=== PATIENT | male | born 1940 | race Caucasian/White ===

== ENCOUNTER 2019-12-22 09:25 | Inpatient (IN) | payer MEDICAID, OTHER ==
[~2019-12-22] VITALS: Ht 177.8 cm; Wt 80.3 kg
[2019-12-22] MEDS ORDERED: MORPHINE SULFATE 4 MG/ML CPJ (NOT FOR IM USE) IV STA (09:41)
[2019-12-22] MEDS ORDERED: ONDANSETRON HCL 4MG/2ML INJ IV STA (09:41)
[2019-12-22] MEDS ORDERED: SODIUM CHLORIDE 0.9% 1,000 ML IV ONE (09:41)
[2019-12-22 10:11] LABS: BASOPHILS % 0.4 % (0.0-2.0); EOSINOPHILS % 1.1 % (0.0-5.0); HEMATOCRIT. 50.8 % (42.0-52.0); HEMOGLOBIN. 16.9 g/dL (14.0-18.0); LYMPHOCYTES % 7.1 % (20.0-50.0); MEAN CORPUSCULAR HEMOGLOBIN 29.4 pg (28.0-32.0); MEAN CORPUSCULAR VOLUME 88.5 fL (80.0-94.0); MEAN PLATELET VOLUME 9.4 fl (7.4-10.4); NEUTROPHILS % 84.4 % (40.0-76.0); PLATELET 169 x1000/uL (130-400); RED BLOOD CELL COUNT 5.74 mill/uL (4.7-6.1); RED CELL DISTRIBUTION WIDTH 16.6 % (11.6-14.6)
[2019-12-22 10:20] LABS: CHLORIDE 112 mEq/L (98-107)
[2019-12-22 10:28] LABS: ETHANOL BLOOD < 10 mg/dL
[2019-12-22 11:10] LABS: INR 1.1; PROTHROMBIN TIME 11.2 sec (9.6-11.0)
[2019-12-22] MEDS ORDERED: DOCUSATE SODIUM 100MG CAPSULE PO PRN (13:30)
[2019-12-22] MEDS ORDERED: GUAIFENESIN 200MG/10ML SUGAR FREE UDC PO PRN (13:30)
[2019-12-22] MEDS ORDERED: MAGNESIUM/ALUMINUM HYDROXIDE/SIMETHICONE 30ML UDC PO PRN (13:30)
[2019-12-22] MEDS ORDERED: CLONIDINE 0.1MG TABLET PO PRN (13:30)
[2019-12-22] MEDS ORDERED: ONDANSETRON HCL 4MG/2ML INJ IV PRN (13:30)
[2019-12-22] MEDS: SODIUM CHLORIDE 0.45% 1,000 ML IV SCH (14:26)
[2019-12-22] MEDS: ENOXAPARIN 40MG/0.4ML SYR SUBCUT SCH (14:26)
[2019-12-23 00:30] VITALS: BP_SYST 140; BP_DIAS 60; BP_DIAS 66
[2019-12-23] MEDS ORDERED: FURO20TA4 PO (03:27)
[2019-12-23] MEDS ORDERED: CHOL200077 PO (03:27)
[2019-12-23] MEDS ORDERED: OMEP20TA2 PO (03:27)
[2019-12-23] MEDS ORDERED: NALO4SPR NS (03:27)
[2019-12-23] MEDS: HYDROCODONE/ACETAMINOPHEN 5/325MG TABLET PO PRN ×2 (03:56→14:59)
[2019-12-23 04:00] VITALS: BP 149/62
[2019-12-23] MEDS: SODIUM CHLORIDE 0.45% 1,000 ML IV SCH ×2 (04:01→16:41)
[2019-12-23 08:00] VITALS: BP 133/54
[2019-12-23] MEDS: ENOXAPARIN 40MG/0.4ML SYR SUBCUT SCH (08:23)
[2019-12-23 08:31] LABS: BASOPHILS % 0.3 % (0.0-2.0); EOSINOPHILS % 3.4 % (0.0-5.0); HEMATOCRIT. 42.2 % (42.0-52.0); LYMPHOCYTES % 9.2 % (20.0-50.0); MEAN CORPUSCULAR HEMOGLOBIN 29.4 pg (28.0-32.0); MEAN CORPUSCULAR VOLUME 88.5 fL (80.0-94.0); MEAN PLATELET VOLUME 9.5 fl (7.4-10.4); MONOCYTES % 8.6 % (2.0-8.0); NEUTROPHILS % 78.5 % (40.0-76.0); PLATELET 142 x1000/uL (130-400); RED BLOOD CELL COUNT 4.77 mill/uL (4.7-6.1); RED CELL DISTRIBUTION WIDTH 16.7 % (11.6-14.6)
[2019-12-23 08:57] LABS: CHLORIDE 117 mEq/L (98-107)
[2019-12-23] MEDS ORDERED: KETOROLAC 15MG/ML VIAL IV PRN (11:15)
[2019-12-23 12:00] VITALS: BP 137/69
[2019-12-23 16:10] VITALS: BP 139/59
[2019-12-23 20:00] VITALS: BP 111/50
[2019-12-24] VITALS: BP_SYST 104; BP_SYST 111; BP_DIAS 50; BP_DIAS 51
[2019-12-24] MEDS: HYDROCODONE/ACETAMINOPHEN 5/325MG TABLET PO PRN (00:48)
[2019-12-24 04:00] VITALS: BP 147/66
[2019-12-24 08:00] VITALS: BP 147/65
[2019-12-24] MEDS: ENOXAPARIN 40MG/0.4ML SYR SUBCUT SCH (09:00)
[2019-12-24 12:00] VITALS: BP 128/58
[2019-12-24] MEDS ORDERED: TRANEXAMIC ACID 1,000 MG/10 ML IV STA (12:49)
[2019-12-24] MEDS ORDERED: EPINEPHRINE 1:1000 1 MG/ML AMP ONE (12:53)
[2019-12-24] MEDS ORDERED: KETOROLAC 30MG/ML VIAL ONE (12:53)
[2019-12-24] MEDS ORDERED: BACITRACIN 50,000 UNITS/VIAL ONE (12:54)
[2019-12-24] MEDS ORDERED: NORMAL SALINE 0.9% 10 ML SYR ONE (12:54)
[2019-12-24] MEDS ORDERED: VANCOMYCIN HCL 1 GM/VIAL ONE (12:54)
[2019-12-24] MEDS ORDERED: TRANEXAMIC ACID 1,000 MG/10 ML IV ONE (15:00)
[2019-12-24] MEDS ORDERED: TRANEXAMIC ACID 1,000 MG in SODIUM CHLORIDE 0.9% 100 ML IV NR (15:00)
[2019-12-24 16:00] VITALS: BP 107/71
[2019-12-24] MEDS ORDERED: MORPHINE SULFATE/PF 1MG/ML 10ML AMP ONE ×2 (16:47→17:48)
[2019-12-24] MEDS ORDERED: ROPIVACAINE HCL 10MG/ML 20 ML VIAL EPI ONE (16:47)
[2019-12-24] MEDS ORDERED: CEFAZOLIN 1000MG PREMIX 50 ML IV SCH (18:05)
[2019-12-24] MEDS ORDERED: CEFAZOLIN SODIUM 1000MG/VIAL ONE (18:15)
[2019-12-24] MEDS ORDERED: DEXAMETHASONE 4MG/ML 1ML VIAL ONE (18:15)
[2019-12-24] MEDS ORDERED: SODIUM CHLORIDE 0.9% 10ML VIAL ONE (18:16)
[2019-12-24] MEDS ORDERED: MIDAZOLAM HCL 5 MG/5 ML VIAL ONE (18:17)
[2019-12-24] MEDS ORDERED: KETOROLAC 30MG/ML VIAL IV PRN (19:30)
[2019-12-24] MEDS ORDERED: MEPERIDINE HCL/PF 25MG/ML CPJ IV PRN (19:45)
[2019-12-24] MEDS ORDERED: ONDANSETRON HCL 4MG/2ML INJ IV PRN (19:45)
[2019-12-24] MEDS ORDERED: LABETALOL 5MG/ML SYR 20 MG/4 ML SYRINGE IV PRN (19:45)
[2019-12-24] MEDS ORDERED: HYDROMORPHONE HCL/PF 2MG/ML CPJ IV PRN (19:45)
[2019-12-25] MEDS: SODIUM CHLORIDE 0.45% 1,000 ML IV SCH ×2 (01:26→08:47)
[2019-12-25] MEDS: CEFAZOLIN 1000MG PREMIX 50 ML IV SCH ×3 (01:26→16:34)
[2019-12-25 08:00] VITALS: BP 118/66
[2019-12-25] MEDS: ENOXAPARIN 40MG/0.4ML SYR SUBCUT SCH (08:47)
[2019-12-25 12:00] VITALS: BP 138/76
[2019-12-25 16:00] VITALS: BP 130/62
[2019-12-25] MEDS: CHLORPROMAZINE HCL 25 MG TABLET PO PRN (20:52)
[2019-12-25] MEDS: HYDROCODONE/ACETAMINOPHEN 5/325MG TABLET PO PRN (20:54)
[2019-12-26] VITALS: BP 97/50
[2019-12-26] MEDS: CEFAZOLIN 1000MG PREMIX 50 ML IV SCH ×3 (01:20→17:12)
[2019-12-26 04:00] VITALS: BP 115/52
[2019-12-26 08:00] VITALS: BP 101/48
[2019-12-26] MEDS: HYDROCODONE/ACETAMINOPHEN 5/325MG TABLET PO PRN ×2 (08:26→14:40)
[2019-12-26] MEDS: ENOXAPARIN 40MG/0.4ML SYR SUBCUT SCH (08:26)
[2019-12-26 12:00] VITALS: BP 101/48
[2019-12-26 16:00] VITALS: BP 124/57
[2019-12-26 20:00] VITALS: BP 110/52
[2019-12-27] VITALS: BP 120/58
[2019-12-27] MEDS: SODIUM CHLORIDE 0.45% 1,000 ML IV SCH ×2 (00:55→16:40)
[2019-12-27 04:00] VITALS: BP 152/64
[2019-12-27] MEDS: HYDROCODONE/ACETAMINOPHEN 5/325MG TABLET PO PRN (04:54)
[2019-12-27 08:00] VITALS: BP 130/60
[2019-12-27] MEDS: ENOXAPARIN 40MG/0.4ML SYR SUBCUT SCH (08:17)
[2019-12-27 12:00] VITALS: BP 156/82
[2019-12-27 16:00] VITALS: BP 139/85
[2019-12-27] MEDS: CHLORPROMAZINE HCL 25 MG TABLET PO PRN (16:40)
[2019-12-27 20:00] VITALS: BP 118/56
[2019-12-28] VITALS: BP 152/74
[2019-12-28] MEDS: CHLORPROMAZINE HCL 25 MG TABLET PO PRN ×2 (00:14→13:29)
[2019-12-28 04:00] VITALS: BP 128/54
[2019-12-28] MEDS: SODIUM CHLORIDE 0.45% 1,000 ML IV SCH ×2 (04:06→16:40)
[2019-12-28 08:00] VITALS: BP 142/68
[2019-12-28] MEDS: ENOXAPARIN 40MG/0.4ML SYR SUBCUT SCH (08:51)
[2019-12-28] MEDS ORDERED: HYDROCODONE/ACETAMINOPHEN 5/325MG TABLET PO PRN (17:15)
[2019-12-28] MEDS: HYDROCODONE/ACETAMINOPHEN 5/325MG TABLET PO PRN (17:35)
[2019-12-28 20:00] VITALS: BP 126/58
[2019-12-29] VITALS: BP 124/55
[2019-12-29 04:00] VITALS: BP 119/56
[2019-12-29 08:00] VITALS: BP 144/66
[2019-12-29] MEDS: ENOXAPARIN 40MG/0.4ML SYR SUBCUT SCH (08:48)
[2019-12-29] MEDS: HYDROCODONE/ACETAMINOPHEN 5/325MG TABLET PO PRN ×2 (11:04→18:34)
[2019-12-29 12:00] VITALS: BP 141/72
[2019-12-29 16:00] VITALS: BP 127/64
[2019-12-29 20:00] VITALS: BP 121/52
[2019-12-30] VITALS: BP 147/76
[2019-12-30 04:00] VITALS: BP 133/63
[2019-12-30] MEDS: SODIUM CHLORIDE 0.45% 1,000 ML IV SCH (05:47)
[2019-12-30 08:00] VITALS: BP 138/72
[2019-12-30] MEDS: ENOXAPARIN 40MG/0.4ML SYR SUBCUT SCH (08:42)
[2019-12-30] MEDS: HYDROCODONE/ACETAMINOPHEN 5/325MG TABLET PO PRN (08:43)
[2019-12-30 12:00] VITALS: BP 124/68
[2019-12-30 16:00] VITALS: BP 122/68
[2019-12-30 20:00] VITALS: BP 116/56
[2019-12-31] VITALS: BP 121/57
[2019-12-31] MEDS: SODIUM CHLORIDE 0.45% 1,000 ML IV SCH (00:20)
[2019-12-31] MEDS: HYDROCODONE/ACETAMINOPHEN 5/325MG TABLET PO PRN ×2 (02:46→09:05)
[2019-12-31 04:00] VITALS: BP 117/57
[2019-12-31 06:31] LABS: HEMATOCRIT 39.8 % (42.0-52.0); HEMOGLOBIN 13.3 g/dL (14.0-18.0); MEAN CORPUSCULAR HEMOGLOBIN 29.4 pg (28.0-32.0); MEAN CORPUSCULAR VOLUME 88.3 fL (80.0-94.0); PLATELET 217 x1000/uL (130-400); RED BLOOD CELL COUNT 4.51 mill/uL (4.7-6.1); RED CELL DISTRIBUTION WIDTH 16.5 % (11.6-14.6)
[2019-12-31 06:32] LABS: CHLORIDE 108 mEq/L (98-107)
[2019-12-31 08:00] VITALS: BP 122/65
[2019-12-31] MEDS: ENOXAPARIN 40MG/0.4ML SYR SUBCUT SCH (08:48)
[2019-12-31 12:00] VITALS: BP 114/62
[2019-12-31 16:00] VITALS: BP 116/72
[2019-12-31 20:00] VITALS: BP 115/57
[2020-01-01] VITALS: BP 121/57
[2020-01-01 04:00] VITALS: BP 120/56
[2020-01-01 08:00] VITALS: BP 134/60
[2020-01-01] MEDS: ENOXAPARIN 40MG/0.4ML SYR SUBCUT SCH (09:07)
[2020-01-01] MEDS: HYDROCODONE/ACETAMINOPHEN 5/325MG TABLET PO PRN ×2 (09:08→20:07)
[2020-01-01 12:00] VITALS: BP 135/69
[2020-01-01] MEDS: SODIUM CHLORIDE 0.45% 1,000 ML IV SCH (14:17)
[2020-01-01 16:00] VITALS: BP 123/50
[2020-01-01 20:00] VITALS: BP 129/58
[2020-01-02] VITALS: BP 136/66
[2020-01-02 04:00] VITALS: BP 122/59
[2020-01-02] MEDS: HYDROCODONE/ACETAMINOPHEN 5/325MG TABLET PO PRN (06:16)
[2020-01-02 08:17] VITALS: BP 137/96
[2020-01-02] MEDS: ENOXAPARIN 40MG/0.4ML SYR SUBCUT SCH (08:47)
[2020-01-02 12:07] VITALS: BP 120/57
[2020-01-02 16:20] VITALS: BP 118/60
[2020-01-02] MEDS: SODIUM CHLORIDE 0.45% 1,000 ML IV SCH (16:40)
[2020-01-02 20:00] VITALS: BP 126/60
[2020-01-02] MEDS: HYDROCODONE/ACETAMINOPHEN 10/325MG TABLET PO PRN (20:55)
[2020-01-03] VITALS: BP 108/63
[2020-01-03 04:00] VITALS: BP 130/56
[2020-01-03] MEDS: HYDROCODONE/ACETAMINOPHEN 10/325MG TABLET PO PRN ×2 (04:23→19:35)
[2020-01-03] MEDS: SODIUM CHLORIDE 0.45% 1,000 ML IV SCH ×2 (06:00→19:35)
[2020-01-03 08:00] VITALS: BP 133/65
[2020-01-03] MEDS: ENOXAPARIN 40MG/0.4ML SYR SUBCUT SCH (08:27)
[2020-01-03 12:00] VITALS: BP 113/73
[2020-01-03 20:00] VITALS: BP 115/48
[2020-01-04] VITALS: BP 116/47
[2020-01-04 04:00] VITALS: BP 117/54
[2020-01-04 08:00] VITALS: BP 129/64
[2020-01-04] MEDS: HYDROCODONE/ACETAMINOPHEN 10/325MG TABLET PO PRN ×2 (08:16→20:31)
[2020-01-04] MEDS: ENOXAPARIN 40MG/0.4ML SYR SUBCUT SCH (08:16)
[2020-01-04 12:00] VITALS: BP 111/50
[2020-01-04 16:00] VITALS: BP 117/35
[2020-01-04 20:00] VITALS: BP 134/67
[2020-01-05] VITALS: BP 128/60
[2020-01-05 04:00] VITALS: BP 137/67
[2020-01-05 08:00] VITALS: BP 141/62
[2020-01-05] MEDS: ENOXAPARIN 40MG/0.4ML SYR SUBCUT SCH (08:07)
[2020-01-05 12:00] VITALS: BP 141/65
[2020-01-05] MEDS: SODIUM CHLORIDE 0.45% 1,000 ML IV SCH (12:27)
[2020-01-05 16:00] VITALS: BP 141/62
[2020-01-05 20:00] VITALS: BP 126/62
[2020-01-05] MEDS: HYDROCODONE/ACETAMINOPHEN 10/325MG TABLET PO PRN (21:35)
[2020-01-06] VITALS: BP 136/56
[2020-01-06] MEDS: SODIUM CHLORIDE 0.45% 1,000 ML IV SCH (00:40)
[2020-01-06 04:00] VITALS: BP 140/67
[2020-01-06 08:00] VITALS: BP 96/54
[2020-01-06] MEDS: ENOXAPARIN 40MG/0.4ML SYR SUBCUT SCH (09:58)
[2020-01-06 12:00] VITALS: BP 117/60
[2020-01-06 16:00] VITALS: BP 114/49
[2020-01-06 20:00] VITALS: BP 113/61
[2020-01-06] MEDS: HYDROCODONE/ACETAMINOPHEN 10/325MG TABLET PO PRN (21:40)
[2020-01-07] VITALS: BP 129/81
[2020-01-07] MEDS: SODIUM CHLORIDE 0.45% 1,000 ML IV SCH ×2 (03:20→16:40)
[2020-01-07 04:00] VITALS: BP 132/71
[2020-01-07] MEDS: HYDROCODONE/ACETAMINOPHEN 10/325MG TABLET PO PRN ×2 (06:24→15:12)
[2020-01-07 08:00] VITALS: BP 136/66
[2020-01-07] MEDS: ENOXAPARIN 40MG/0.4ML SYR SUBCUT SCH (08:48)
[2020-01-07 12:00] VITALS: BP 125/87
[2020-01-07 16:00] VITALS: BP 103/58
[2020-01-07 20:00] VITALS: BP 117/58
[2020-01-08] VITALS: BP 123/61
[2020-01-08 04:00] VITALS: BP 131/64
[2020-01-08 08:00] VITALS: BP 122/64
[2020-01-08] MEDS: ENOXAPARIN 40MG/0.4ML SYR SUBCUT SCH (09:24)
[2020-01-08 12:00] VITALS: BP 128/61
[2020-01-08 16:00] VITALS: BP 133/64
[2020-01-08] MEDS: SODIUM CHLORIDE 0.45% 1,000 ML IV SCH (19:02)
[2020-01-09] VITALS: BP 142/61
[2020-01-09] MEDS: ACETAMINOPHEN 325MG TABLET PO PRN (03:40)
[2020-01-09 04:00] VITALS: BP 134/75
[2020-01-09 06:39] LABS: BASOPHILS % 0.3 % (0.0-2.0); EOSINOPHILS % 2.5 % (0.0-5.0); HEMATOCRIT. 41.6 % (42.0-52.0); HEMOGLOBIN. 13.9 g/dL (14.0-18.0); LYMPHOCYTES % 11.6 % (20.0-50.0); MEAN CORPUSCULAR HEMOGLOBIN 29.6 pg (28.0-32.0); MEAN CORPUSCULAR VOLUME 88.8 fL (80.0-94.0); MEAN PLATELET VOLUME 8.4 fl (7.4-10.4); MONOCYTES % 8.3 % (2.0-8.0); NEUTROPHILS % 77.3 % (40.0-76.0); PLATELET 201 x1000/uL (130-400); RED BLOOD CELL COUNT 4.68 mill/uL (4.7-6.1); RED CELL DISTRIBUTION WIDTH 17.2 % (11.6-14.6)
[2020-01-09 08:00] VITALS: BP 138/63
[2020-01-09] MEDS: ENOXAPARIN 40MG/0.4ML SYR SUBCUT SCH (08:40)
[2020-01-09] MEDS: SODIUM CHLORIDE 0.45% 1,000 ML IV SCH (08:40)
[2020-01-09 12:00] VITALS: BP 132/61
[2020-01-09 16:00] VITALS: BP 135/54
[2020-01-09 20:00] VITALS: BP 125/61
[2020-01-10] VITALS: BP 120/56
[2020-01-10 04:00] VITALS: BP 120/62
[2020-01-10 08:00] VITALS: BP 137/60
[2020-01-10] MEDS: ENOXAPARIN 40MG/0.4ML SYR SUBCUT SCH (08:40)
[2020-01-10 12:00] VITALS: BP 124/81
[2020-01-10 16:00] VITALS: BP 125/59
[2020-01-10 20:00] VITALS: BP 113/59
[2020-01-11] VITALS: BP 126/62
[2020-01-11 04:00] VITALS: BP 120/65
[2020-01-11] MEDS: ENOXAPARIN 40MG/0.4ML SYR SUBCUT SCH (09:15)
[2020-01-11] MEDS: SODIUM CHLORIDE 0.45% 1,000 ML IV SCH (14:00)
[2020-01-12] MEDS: SODIUM CHLORIDE 0.45% 1,000 ML IV SCH ×2 (03:20→16:40)
[2020-01-12 06:27] VITALS: BP 127/59
[2020-01-12 08:00] VITALS: BP 130/64
[2020-01-12] MEDS: ENOXAPARIN 40MG/0.4ML SYR SUBCUT SCH (09:07)
[2020-01-12 12:36] VITALS: BP 128/68
[2020-01-12 20:00] VITALS: BP 108/55
[2020-01-13] VITALS: BP 113/65
[2020-01-13 04:00] VITALS: BP 106/57
[2020-01-13] MEDS: SODIUM CHLORIDE 0.45% 1,000 ML IV SCH (06:00)
[2020-01-13 08:00] VITALS: BP 121/66
[2020-01-13] MEDS: ENOXAPARIN 40MG/0.4ML SYR SUBCUT SCH (10:54)
[2020-01-13 12:00] VITALS: BP 133/66
[2020-01-13 16:00] VITALS: BP 139/64
[2020-01-13 20:00] VITALS: BP 116/62
[2020-01-14] VITALS: BP 133/61
[2020-01-14 04:00] VITALS: BP 125/53
[2020-01-14 08:04] VITALS: BP 126/66
[2020-01-14] MEDS: ENOXAPARIN 40MG/0.4ML SYR SUBCUT SCH (08:44)
[2020-01-14 11:55] VITALS: BP 120/66
[2020-01-14 20:00] VITALS: BP 117/64
[2020-01-15] VITALS: BP 123/62
[2020-01-15 04:00] VITALS: BP 125/58
[2020-01-15 08:00] VITALS: BP 135/63
[2020-01-15] MEDS: ENOXAPARIN 40MG/0.4ML SYR SUBCUT SCH (11:58)
[2020-01-15 12:00] VITALS: BP 119/62
[2020-01-15 16:00] VITALS: BP 119/55
[2020-01-15 20:00] VITALS: BP 129/61
[2020-01-16] VITALS: BP 125/65
[2020-01-16 04:00] VITALS: BP 120/70
[2020-01-16 08:00] VITALS: BP 123/63
[2020-01-16] MEDS: ENOXAPARIN 40MG/0.4ML SYR SUBCUT SCH (09:23)
[2020-01-16 12:00] VITALS: BP 121/59
[2020-01-16] MEDS: SODIUM CHLORIDE 0.45% 1,000 ML IV SCH (14:00)
[2020-01-16 16:00] VITALS: BP 131/61
[2020-01-16 23:11] VITALS: BP 115/60
[2020-01-17] VITALS: BP 120/70
[2020-01-17] MEDS: SODIUM CHLORIDE 0.45% 1,000 ML IV SCH (03:20)
[2020-01-17 04:00] VITALS: BP 121/75
[2020-01-17 08:00] VITALS: BP 125/70
[2020-01-17] MEDS: ENOXAPARIN 40MG/0.4ML SYR SUBCUT SCH (09:01)
[2020-01-17 12:00] VITALS: BP 140/61
[2020-01-17 16:00] VITALS: BP 122/54
[2020-01-18 08:00] VITALS: BP 121/68
[2020-01-18] MEDS: ENOXAPARIN 40MG/0.4ML SYR SUBCUT SCH (09:05)
[2020-01-18 12:00] VITALS: BP 130/70
[2020-01-18] MEDS: ACETAMINOPHEN 325MG TABLET PO PRN (15:53)
[2020-01-18 16:00] VITALS: BP 127/65
[2020-01-18] MEDS: SODIUM CHLORIDE 0.45% 1,000 ML IV SCH (19:20)
[2020-01-18 20:00] VITALS: BP 110/58
[2020-01-19] VITALS: BP_SYST 121; BP_SYST 89; BP_DIAS 63; BP_DIAS 65
[2020-01-19 04:00] VITALS: BP 113/56
[2020-01-19 08:00] VITALS: BP 112/64
[2020-01-19] MEDS: ENOXAPARIN 40MG/0.4ML SYR SUBCUT SCH (08:57)
[2020-01-19 09:52] LABS: BASOPHILS % 0.2 % (0.0-2.0); LYMPHOCYTES % 11.4 % (20.0-50.0); MEAN CORPUSCULAR HEMOGLOBIN 29.9 pg (28.0-32.0); MEAN CORPUSCULAR VOLUME 89.8 fL (80.0-94.0); MEAN PLATELET VOLUME 8.8 fl (7.4-10.4); MONOCYTES % 7.5 % (2.0-8.0); NEUTROPHILS % 77.9 % (40.0-76.0); PLATELET 163 x1000/uL (130-400); RED BLOOD CELL COUNT 5.01 mill/uL (4.7-6.1); RED CELL DISTRIBUTION WIDTH 17.5 % (11.6-14.6)
[2020-01-19 10:17] LABS: CHLORIDE 107 mEq/L (98-107)
[2020-01-19 12:00] VITALS: BP 125/81
[2020-01-19 16:00] VITALS: BP 125/81
[2020-01-19 20:00] VITALS: BP 121/62
[2020-01-20] VITALS: BP 118/60
[2020-01-20 04:00] VITALS: BP 118/60
[2020-01-20 08:00] VITALS: BP 135/66
[2020-01-20] MEDS: ENOXAPARIN 40MG/0.4ML SYR SUBCUT SCH (09:00)
[2020-01-20 20:00] VITALS: BP 109/48
[2020-01-21] VITALS: BP 127/51
[2020-01-21 04:00] VITALS: BP 110/51
[2020-01-21 08:00] VITALS: BP 127/61
[2020-01-21 12:00] VITALS: BP 129/65
[2020-01-21] MEDS ORDERED: ENOXAPARIN 40MG/0.4ML SYR SUBCUT SCH (13:00)
[2020-01-21 16:00] VITALS: BP 108/64
[2020-01-21 20:31] VITALS: BP 111/60
[2020-01-22] VITALS: BP 134/73
[2020-01-22 04:00] VITALS: BP 142/69
[2020-01-22 07:36] VITALS: BP 142/69
[2020-01-22 08:00] VITALS: BP 116/68
== END 2020-01-22 09:00 | disposition home or self-care (01) | DRG 301 ==
LOC: ER 09:48 → MICUSO 11:00 → EDBEDREQ 11:02 → ENRESERV 19:08 → CANRESERV 19:08 → ENRESERV 21:44 → CANRESERV 21:44 → 6EST 12-23 02:27
PROVIDERS: ADMIT Hospitalist; ATTEND Hospitalist
PROC: 0SRS0JA Replacement of Left Hip Joint, Femoral Surface with Synthetic Substitute, Uncemented, Open Approach (ICD-10-PCS; principal; 2019-12-25)
DX: M84.452A Pathological fracture, left femur, initial encounter for fracture (principal); E43 Unspecified severe protein-calorie malnutrition; E86.0 Dehydration; F10.21 Alcohol dependence, in remission; I10 Essential (primary) hypertension; Z96.659 Presence of unspecified artificial knee joint; Z20.828 Contact with and (suspected) exposure to other viral communicable diseases; Z68.25 Body mass index [BMI] 25.0-25.9, adult; Z79.899 Other long term (current) drug therapy
CPT/HCPCS: 36415; 71045; 72170; 73502; 73552; 80048; 80053; 80320; 82962; 85025; 85027; 86850; 86900; 87426; 87635; 88305; 88311; 93005; 93970; 96374; 97116; 97162; 97164; 97166; 97168; 97530; 97535; 99285; C1776; J0690; J1100; J1650; J1885; J2250; J2270; J2274; J2405; J2795; J3370; J3490; J7030; J7050; Q0161; G0480